=== PATIENT | male | born 1940 ===

== ENCOUNTER 2019-02-13 10:48 | Outpatient (CLI) | payer MEDICARE | END 2019-02-13 10:49 | disposition home or self-care (01) | LOC: C.RADIC 10:48 ==

== ENCOUNTER 2019-02-20 07:39 | Outpatient (CLI) | payer MEDICARE | END 2019-02-20 07:40 | disposition home or self-care (01) | LOC: C.CTH 07:39 | DX: K81.0 Acute cholecystitis (principal); R09.1 Pleurisy ==